=== PATIENT | male | born 1940 | race Caucasian/White ===

== ENCOUNTER 2016-07-07 19:36 | Inpatient (IN) | payer MEDICARE ==
[2016-07-07] MEDS ORDERED: VENELEX OINTMEN60 GM (20:16)
[2016-07-07] MEDS ORDERED: XANAX0.5 M1 PO (20:17)
[2016-07-07] MEDS ORDERED: ASPIRIN81 M1 PO (20:17)
[2016-07-07] MEDS ORDERED: AMIODARONE HCL100 M1 PO (20:17)
[2016-07-07] MEDS ORDERED: BUPROPION PO (20:18)
[2016-07-07] MEDS ORDERED: COREG12.5 M1 PO (20:18)
[2016-07-07] MEDS ORDERED: ELIQUIS5 M1 PO (20:19)
[2016-07-07] MEDS ORDERED: NEURONTIN300 M1 PO (20:19)
[2016-07-07] MEDS ORDERED: humolog (20:20)
[2016-07-07 20:21] LABS: BASO % 0.5 % (0-2); EOS % 1.3 % (0-7); EOSINOPHIL ABSOLUTE COUNT 0.1 tho/cmm (0.0-0.7); HCT-HEMATOCRIT 35.8 % (36.0-53.5); HGB-HEMOGLOBIN 11.6 gm/dl (13.5-17.0); LYMPH % 14.4 % (20-45); LYMPH ABSOLUTE COUNT 0.9 tho/cmm (0.8-4.5); MCHC MEAN CORPUSCULAR HGB CONC 32.4 % (32.0-36.0); MEAN PLATELET VOLUME 10.3 cmc (9.4-12.4); MONO % 10.3 % (0-12); MONOCYTE ABSOLUTE COUNT 0.6 tho/cmm (0.0-1.2); NEUTROPHIL ABSOLUTE COUNT 4.5 tho/cmm (1.6-8.0); NEUTROPHIL-AUTOMATED 4.5 tho/cmm (1.6-8.0); NEUTROPHILS % 73.5 % (40-80); PLATELET COUNT 159 tho/cmm (150-450); RED BLOOD COUNT 3.51 mil/cmm (4.40-5.70); RED CELL DISTRIBUTION WIDTH 15.5 % (12.4-16.4); WHITE BLOOD COUNT 6.1 tho/cmm (4.0-10.0)
[2016-07-07] MEDS ORDERED: VISTARIL25 M1 (20:21)
[2016-07-07] MEDS ORDERED: PRINIVIL5 M1 PO (20:22)
[2016-07-07] MEDS ORDERED: KLOR-CON 1010 ME1 PO (20:22)
[2016-07-07] MEDS ORDERED: MELATONIN5 M5 PO (20:23)
[2016-07-07] MEDS ORDERED: BISCOLAX10 MG PR (20:23)
[2016-07-07] MEDS ORDERED: ZOCOR80 M1 PO (20:24)
[2016-07-07] MEDS ORDERED: MIRALAX17 G2 PO (20:24)
[2016-07-07] MEDS ORDERED: ALDACTONE25 M1 PO (20:24)
[2016-07-07] MEDS ORDERED: SYMBICORT 160-1 PUFF INH (20:25)
[2016-07-07] MEDS ORDERED: TYLENOL EXTRA500 M1 (20:25)
[2016-07-07] MEDS ORDERED: DEMADEX20 M1 PO (20:25)
[2016-07-07 20:36] LABS: ANION GAP 10 mmol/L (0-20); BLOOD UREA NITROGEN 46 mg/dl (6-24); CALCIUM 8.6 mg/dl (8.5-10.5); CARBON DIOXIDE-VENOUS 37 mmol/L (22-32); CHLORIDE 95 mmol/l (96-110); CREATININE 1.87 mg/dl (0.60-1.30); GLUCOSE 158 mg/dL (70-110); POTASSIUM 5.3 mmol/L (3.7-5.1); SODIUM 137 mmol/L (135-145); eGFR VALUE FOR BLACK 39 mL/Min
[2016-07-07 20:50] LABS: URINE APPEARANCE CLEAR; URINE BILIRUBIN NEGATIVE (NEG); URINE BLOOD MODERATE (NEG); URINE COLOR YELLOW; URINE GLUCOSE (UA) NEGATIVE (NEG); URINE KETONE NEGATIVE (NEG); URINE LEUKOCYTE ESTERASE POSITIVE (NEG); URINE NITRITE NEGATIVE (NEG); URINE PROTEIN NEGATIVE (NEG)
[2016-07-07 20:56] LABS: PROCALCITONIN 0.25 ng/ml (0.05-0.09)
[2016-07-07 20:57] LABS: URINE AMORPHOUS 1+; URINE EPITHELIAL CELLS 0 /[HPF] (0-10)
[2016-07-08 03:02] LABS: ABG CO2 ARTERIAL 36 mmol/L (21-27); ARTERIAL BLD GAS O2 SATURATION 97 % (95-98); ARTERIAL BLOOD GAS PCO2 57 mmHg (32-45); ARTERIAL PO2 82 mmHg (70-100); BICARBONATE 34 mmol/L (21-28); BLOOD GAS BASE EXCESS 8 mM/L (-/+3); PH 7.39 Units (7.35-7.45)
[2016-07-08 05:18] LABS: BASO % 0.4 % (0-2); EOS % 0.2 % (0-7); HCT-HEMATOCRIT 30.2 % (36.0-53.5); HGB-HEMOGLOBIN 9.8 gm/dl (13.5-17.0); IMMATURE GRANULOCYTES ABSOLUTE 0.02 tho/cmm (0-0.03); IMMATURE GRANULOCYTES PERCENT 0.4 % (0-0.3); LYMPH % 9.4 % (20-45); LYMPH ABSOLUTE COUNT 0.4 tho/cmm (0.8-4.5); MCH (MEAN CORPUSCULAR HGB) 32.8 pg (28.0-32.0); MCHC MEAN CORPUSCULAR HGB CONC 32.5 % (32.0-36.0); MEAN PLATELET VOLUME 10.4 cmc (9.4-12.4); MONO % 24.9 % (0-12); MONOCYTE ABSOLUTE COUNT 1.1 tho/cmm (0.0-1.2); NEUTROPHILS % 64.7 % (40-80); PLATELET COUNT 140 tho/cmm (150-450); RED BLOOD COUNT 2.99 mil/cmm (4.40-5.70); RED CELL DISTRIBUTION WIDTH 15.7 % (12.4-16.4); WHITE BLOOD COUNT 4.6 tho/cmm (4.0-10.0)
[2016-07-08 05:28] LABS: INR 1.4 INR (0.9-1.1); PROTHROMBIN TIME 16.3 SECONDS (9.0-13.6)
[2016-07-08 05:40] LABS: ALB/GLOB RATIO 0.9 (0.8-2.0); ALBUMIN 2.5 g/dl (3.5-5.0); ALKALINE PHOSPHATASE 81 U/L (33-138); ALT/SGPT 73 U/L (12-78); ANION GAP 11 mmol/L (0-20); AST/SGOT 37 U/L (10-40); BILIRUBIN,TOTAL 0.9 mg/dl (0.0-1.5); BLOOD UREA NITROGEN 40 mg/dl (6-24); CALCIUM 7.9 mg/dl (8.5-10.5); CARBON DIOXIDE-VENOUS 35 mmol/L (22-32); CHLORIDE 99 mmol/l (96-110); CREATININE 1.64 mg/dl (0.60-1.30); GLUCOSE 132 mg/dL (70-110); POTASSIUM 4.5 mmol/L (3.7-5.1); SODIUM 140 mmol/L (135-145); eGFR VALUE FOR BLACK 46 mL/Min
[2016-07-09 04:38] LABS: BASO % 0.5 % (0-2); EOS % 1.8 % (0-7); HCT-HEMATOCRIT 25.5 % (36.0-53.5); HGB-HEMOGLOBIN 8.2 gm/dl (13.5-17.0); LYMPH ABSOLUTE COUNT 0.5 tho/cmm (0.8-4.5); MCH (MEAN CORPUSCULAR HGB) 32.7 pg (28.0-32.0); MCHC MEAN CORPUSCULAR HGB CONC 32.2 % (32.0-36.0); MCV (MEAN CELL VOLUME) 101.6 fl (82.0-96.0); MEAN PLATELET VOLUME 10.1 cmc (9.4-12.4); MONO % 25.8 % (0-12); MONOCYTE ABSOLUTE COUNT 0.6 tho/cmm (0.0-1.2); NEUTROPHIL ABSOLUTE COUNT 1.1 tho/cmm (1.6-8.0); NEUTROPHIL-AUTOMATED 1.1 tho/cmm (1.6-8.0); NEUTROPHILS % 48.9 % (40-80); PLATELET COUNT 125 tho/cmm (150-450); RED BLOOD COUNT 2.51 mil/cmm (4.40-5.70); RED CELL DISTRIBUTION WIDTH 15.6 % (12.4-16.4)
[2016-07-09 04:45] LABS: WHITE BLOOD COUNT 2.2 tho/cmm (4.0-10.0)
[2016-07-09 05:26] LABS: ANION GAP 8 mmol/L (0-20); BLOOD UREA NITROGEN 44 mg/dl (6-24); CALCIUM 7.5 mg/dl (8.5-10.5); CARBON DIOXIDE-VENOUS 31 mmol/L (22-32); CHLORIDE 102 mmol/l (96-110); CREATININE 1.38 mg/dl (0.60-1.30); GLUCOSE 107 mg/dL (70-110); SODIUM 137 mmol/L (135-145); eGFR VALUE FOR BLACK 57 mL/Min
[2016-07-09 21:09] LABS: HCT-HEMATOCRIT 21.1 % (36.0-53.5); HGB-HEMOGLOBIN 6.9 gm/dl (13.5-17.0); RED CELL DISTRIBUTION WIDTH 15.5 % (12.4-16.4)
[2016-07-10 11:39] LABS: BASO % 0.8 % (0-2); EOS % 1.4 % (0-7); EOSINOPHIL ABSOLUTE COUNT 0.1 tho/cmm (0.0-0.7); LYMPH % 22.8 % (20-45); LYMPH ABSOLUTE COUNT 0.8 tho/cmm (0.8-4.5); MCV (MEAN CELL VOLUME) 96.9 fl (82.0-96.0); MEAN PLATELET VOLUME 10.9 cmc (9.4-12.4); MONO % 26.9 % (0-12); NEUTROPHIL ABSOLUTE COUNT 1.7 tho/cmm (1.6-8.0); NEUTROPHIL-AUTOMATED 1.7 tho/cmm (1.6-8.0); NEUTROPHILS % 48.1 % (40-80); PLATELET COUNT 147 tho/cmm (150-450)
[2016-07-10 11:42] LABS: HCT-HEMATOCRIT 28.1 % (36.0-53.5); HGB-HEMOGLOBIN 9.2 gm/dl (13.5-17.0); MCH (MEAN CORPUSCULAR HGB) 31.7 pg (28.0-32.0); MCHC MEAN CORPUSCULAR HGB CONC 32.7 % (32.0-36.0); WHITE BLOOD COUNT 3.6 tho/cmm (4.0-10.0)
[2016-07-10 11:56] LABS: ANION GAP 10 mmol/L (0-20); BLOOD UREA NITROGEN 47 mg/dl (6-24); CALCIUM 7.3 mg/dl (8.5-10.5); CARBON DIOXIDE-VENOUS 32 mmol/L (22-32); CHLORIDE 101 mmol/l (96-110); CREATININE 1.23 mg/dl (0.60-1.30); POTASSIUM 4.3 mmol/L (3.7-5.1); SODIUM 139 mmol/L (135-145); eGFR VALUE FOR BLACK 65 mL/Min
[2016-07-10 12:05] LABS: GLUCOSE 199 mg/dL (70-110)
[2016-07-11 03:49] LABS: BASO % 0.3 % (0-2); EOS % 1.6 % (0-7); EOSINOPHIL ABSOLUTE COUNT 0.1 tho/cmm (0.0-0.7); IMMATURE GRANULOCYTES ABSOLUTE 0.01 tho/cmm (0-0.03); IMMATURE GRANULOCYTES PERCENT 0.3 % (0-0.3); LYMPH % 18.4 % (20-45); LYMPH ABSOLUTE COUNT 0.7 tho/cmm (0.8-4.5); MCH (MEAN CORPUSCULAR HGB) 31.7 pg (28.0-32.0); MCHC MEAN CORPUSCULAR HGB CONC 33.3 % (32.0-36.0); MCV (MEAN CELL VOLUME) 95.1 fl (82.0-96.0); MEAN PLATELET VOLUME 9.8 cmc (9.4-12.4); MONO % 21.8 % (0-12); MONOCYTE ABSOLUTE COUNT 0.8 tho/cmm (0.0-1.2); NEUTROPHIL ABSOLUTE COUNT 2.2 tho/cmm (1.6-8.0); NEUTROPHIL-AUTOMATED 2.2 tho/cmm (1.6-8.0); NEUTROPHILS % 57.6 % (40-80); PLATELET COUNT 147 tho/cmm (150-450); RED BLOOD COUNT 2.84 mil/cmm (4.40-5.70); RED CELL DISTRIBUTION WIDTH 17.9 % (12.4-16.4); WHITE BLOOD COUNT 3.9 tho/cmm (4.0-10.0)
[2016-07-11 04:04] LABS: ANION GAP 10 mmol/L (0-20); BLOOD UREA NITROGEN 31 mg/dl (6-24); CALCIUM 7.7 mg/dl (8.5-10.5); CARBON DIOXIDE-VENOUS 31 mmol/L (22-32); CHLORIDE 105 mmol/l (96-110); CREATININE 1.08 mg/dl (0.60-1.30); GLUCOSE 117 mg/dL (70-110); POTASSIUM 3.7 mmol/L (3.7-5.1); SODIUM 142 mmol/L (135-145); eGFR VALUE FOR BLACK 76 mL/Min
[2016-07-13 05:57] LABS: BASO % 0.2 % (0-2); EOS % 6.3 % (0-7); EOSINOPHIL ABSOLUTE COUNT 0.3 tho/cmm (0.0-0.7); HGB-HEMOGLOBIN 7.5 gm/dl (13.5-17.0); IMMATURE GRANULOCYTES ABSOLUTE 0.02 tho/cmm (0-0.03); IMMATURE GRANULOCYTES PERCENT 0.5 % (0-0.3); LYMPH % 22.4 % (20-45); LYMPH ABSOLUTE COUNT 0.9 tho/cmm (0.8-4.5); MCHC MEAN CORPUSCULAR HGB CONC 31.9 % (32.0-36.0); MCV (MEAN CELL VOLUME) 97.1 fl (82.0-96.0); MEAN PLATELET VOLUME 9.7 cmc (9.4-12.4); MONO % 19.3 % (0-12); MONOCYTE ABSOLUTE COUNT 0.8 tho/cmm (0.0-1.2); NEUTROPHIL ABSOLUTE COUNT 2.1 tho/cmm (1.6-8.0); NEUTROPHIL-AUTOMATED 2.1 tho/cmm (1.6-8.0); NEUTROPHILS % 51.3 % (40-80); PLATELET COUNT 189 tho/cmm (150-450); RED BLOOD COUNT 2.42 mil/cmm (4.40-5.70); RED CELL DISTRIBUTION WIDTH 17.5 % (12.4-16.4); WHITE BLOOD COUNT 4.1 tho/cmm (4.0-10.0)
[2016-07-13 05:59] LABS: HCT-HEMATOCRIT 23.5 % (36.0-53.5)
[2016-07-13 06:06] LABS: ANION GAP 9 mmol/L (0-20); BLOOD UREA NITROGEN 16 mg/dl (6-24); CALCIUM 7.8 mg/dl (8.5-10.5); CARBON DIOXIDE-VENOUS 34 mmol/L (22-32); CHLORIDE 104 mmol/l (96-110); CREATININE 0.99 mg/dl (0.60-1.30); GLUCOSE 124 mg/dL (70-110); POTASSIUM 3.7 mmol/L (3.7-5.1); SODIUM 143 mmol/L (135-145); eGFR VALUE FOR BLACK 85 mL/Min
[2016-07-14 05:54] LABS: BASO % 0.7 % (0-2); EOS % 4.3 % (0-7); EOSINOPHIL ABSOLUTE COUNT 0.2 tho/cmm (0.0-0.7); HGB-HEMOGLOBIN 7.8 gm/dl (13.5-17.0); IMMATURE GRANULOCYTES ABSOLUTE 0.08 tho/cmm (0-0.03); IMMATURE GRANULOCYTES PERCENT 1.8 % (0-0.3); LYMPH % 22.4 % (20-45); MCHC MEAN CORPUSCULAR HGB CONC 32.6 % (32.0-36.0); MEAN PLATELET VOLUME 9.7 cmc (9.4-12.4); MONOCYTE ABSOLUTE COUNT 0.8 tho/cmm (0.0-1.2); NEUTROPHIL ABSOLUTE COUNT 2.3 tho/cmm (1.6-8.0); NEUTROPHIL-AUTOMATED 2.3 tho/cmm (1.6-8.0); NEUTROPHILS % 51.8 % (40-80); PLATELET COUNT 241 tho/cmm (150-450); RED BLOOD COUNT 2.44 mil/cmm (4.40-5.70); WHITE BLOOD COUNT 4.4 tho/cmm (4.0-10.0)
[2016-07-14 05:59] LABS: HCT-HEMATOCRIT 23.9 % (36.0-53.5)
[2016-07-14 06:11] LABS: ANION GAP 9 mmol/L (0-20); BLOOD UREA NITROGEN 19 mg/dl (6-24); CALCIUM 7.9 mg/dl (8.5-10.5); CARBON DIOXIDE-VENOUS 35 mmol/L (22-32); CHLORIDE 103 mmol/l (96-110); CREATININE 1.06 mg/dl (0.60-1.30); GLUCOSE 120 mg/dL (70-110); POTASSIUM 3.7 mmol/L (3.7-5.1); SODIUM 143 mmol/L (135-145); eGFR VALUE FOR BLACK 78 mL/Min
[2016-07-15 04:17] LABS: BASO % 0.6 % (0-2); EOS % 3.8 % (0-7); EOSINOPHIL ABSOLUTE COUNT 0.2 tho/cmm (0.0-0.7); HCT-HEMATOCRIT 24.1 % (36.0-53.5); HGB-HEMOGLOBIN 7.7 gm/dl (13.5-17.0); LYMPH % 23.5 % (20-45); LYMPH ABSOLUTE COUNT 1.2 tho/cmm (0.8-4.5); MCH (MEAN CORPUSCULAR HGB) 31.6 pg (28.0-32.0); MCV (MEAN CELL VOLUME) 98.8 fl (82.0-96.0); MEAN PLATELET VOLUME 9.3 cmc (9.4-12.4); MONO % 19.5 % (0-12); NEUTROPHIL ABSOLUTE COUNT 2.5 tho/cmm (1.6-8.0); NEUTROPHIL-AUTOMATED 2.5 tho/cmm (1.6-8.0); NEUTROPHILS % 50.6 % (40-80); PLATELET COUNT 284 tho/cmm (150-450); RED BLOOD COUNT 2.44 mil/cmm (4.40-5.70); RED CELL DISTRIBUTION WIDTH 17.9 % (12.4-16.4)
[2016-07-15 04:29] LABS: ANION GAP 10 mmol/L (0-20); BLOOD UREA NITROGEN 20 mg/dl (6-24); CALCIUM 7.7 mg/dl (8.5-10.5); CARBON DIOXIDE-VENOUS 34 mmol/L (22-32); CHLORIDE 101 mmol/l (96-110); CREATININE 1.12 mg/dl (0.60-1.30); GLUCOSE 123 mg/dL (70-110); POTASSIUM 3.9 mmol/L (3.7-5.1); SODIUM 141 mmol/L (135-145); eGFR VALUE FOR BLACK 73 mL/Min
[2016-07-16 05:22] LABS: BASO % 0.2 % (0-2); EOS % 2.9 % (0-7); EOSINOPHIL ABSOLUTE COUNT 0.2 tho/cmm (0.0-0.7); HCT-HEMATOCRIT 26.5 % (36.0-53.5); HGB-HEMOGLOBIN 8.5 gm/dl (13.5-17.0); IMMATURE GRANULOCYTES ABSOLUTE 0.08 tho/cmm (0-0.03); IMMATURE GRANULOCYTES PERCENT 1.3 % (0-0.3); LYMPH % 17.8 % (20-45); LYMPH ABSOLUTE COUNT 1.1 tho/cmm (0.8-4.5); MCH (MEAN CORPUSCULAR HGB) 31.5 pg (28.0-32.0); MCHC MEAN CORPUSCULAR HGB CONC 32.1 % (32.0-36.0); MCV (MEAN CELL VOLUME) 98.1 fl (82.0-96.0); MEAN PLATELET VOLUME 9.1 cmc (9.4-12.4); MONO % 18.5 % (0-12); MONOCYTE ABSOLUTE COUNT 1.1 tho/cmm (0.0-1.2); NEUTROPHIL ABSOLUTE COUNT 3.5 tho/cmm (1.6-8.0); NEUTROPHIL-AUTOMATED 3.5 tho/cmm (1.6-8.0); NEUTROPHILS % 59.3 % (40-80); PLATELET COUNT 353 tho/cmm (150-450); RED CELL DISTRIBUTION WIDTH 18.5 % (12.4-16.4)
[2016-07-16 05:37] LABS: ANION GAP 11 mmol/L (0-20); BLOOD UREA NITROGEN 23 mg/dl (6-24); CALCIUM 8.2 mg/dl (8.5-10.5); CARBON DIOXIDE-VENOUS 32 mmol/L (22-32); CHLORIDE 100 mmol/l (96-110); CREATININE 1.25 mg/dl (0.60-1.30); GLUCOSE 149 mg/dL (70-110); POTASSIUM 4.2 mmol/L (3.7-5.1); SODIUM 139 mmol/L (135-145); eGFR VALUE FOR BLACK 64 mL/Min
[2016-07-17] MEDS ORDERED: LOTRIMIN AF12 GM TOP (11:38)
[2016-07-17] MEDS ORDERED: COREG6.25 M1 PO (11:40)
[2016-07-17] MEDS ORDERED: PROTONIX40 M2 PO (11:52)
[2016-07-17] MEDS ORDERED: LASIX40 M1 PO (11:53)
[2016-07-17 23:17] LABS: BASO % 0.2 % (0-2); EOS % 1.3 % (0-7); EOSINOPHIL ABSOLUTE COUNT 0.1 tho/cmm (0.0-0.7); HCT-HEMATOCRIT 26.1 % (36.0-53.5); HGB-HEMOGLOBIN 8.4 gm/dl (13.5-17.0); IMMATURE GRANULOCYTES ABSOLUTE 0.07 tho/cmm (0-0.03); IMMATURE GRANULOCYTES PERCENT 1.2 % (0-0.3); LYMPH ABSOLUTE COUNT 0.9 tho/cmm (0.8-4.5); MCH (MEAN CORPUSCULAR HGB) 31.6 pg (28.0-32.0); MCHC MEAN CORPUSCULAR HGB CONC 32.2 % (32.0-36.0); MCV (MEAN CELL VOLUME) 98.1 fl (82.0-96.0); MEAN PLATELET VOLUME 8.5 cmc (9.4-12.4); MONO % 17.4 % (0-12); MONOCYTE ABSOLUTE COUNT 1.1 tho/cmm (0.0-1.2); NEUTROPHILS % 65.9 % (40-80); PLATELET COUNT 320 tho/cmm (150-450); RED BLOOD COUNT 2.66 mil/cmm (4.40-5.70); RED CELL DISTRIBUTION WIDTH 18.4 % (12.4-16.4); WHITE BLOOD COUNT 6.1 tho/cmm (4.0-10.0)
[2016-07-17 23:32] LABS: ANION GAP 9 mmol/L (0-20); BLOOD UREA NITROGEN 37 mg/dl (6-24); CALCIUM 8.3 mg/dl (8.5-10.5); CARBON DIOXIDE-VENOUS 33 mmol/L (22-32); CHLORIDE 99 mmol/l (96-110); CREATININE 1.15 mg/dl (0.60-1.30); GLUCOSE 184 mg/dL (70-110); POTASSIUM 4.3 mmol/L (3.7-5.1); SODIUM 137 mmol/L (135-145); eGFR VALUE FOR BLACK 71 mL/Min
--- NOTE | 2016-07-18 14:19 | NUR ---
REC'D CALL ON OFFICE PHONE FROM PTS DAUGHTER, SYL. STATED PT NOT ABLE TO GET INTO SNF FACILITY THEY WANT, PER DR ALLEN AND THAT ON HOSPICE PT WILL HAVE TO PAY FOR ROOM AND BOARD PRIVATELY. RET'D CALL TO DTR, LEFT MSG THAT SW IS WORKING ON SNF OPTIONS. VERIFIED THAT WITH HOSPICE MEDICARE BENEFITS, ROOM AND BOARD IS NOT COVERED. INFO (VERBAL AND WRITTEN), ON MEDICARE HOSPICE BENEFITS WAS GIVEN TO PT, AND SON, KACEY LAST SUNDAY. LIST OF HOSPICE PROVIDERS WAS AGAIN GIVEN TO PT, AND SYL YESTERDAY. UPDATE TO Romaine KHAN NP.
--- NOTE | 2016-07-19 13:17 | NUR ---
ABOUT 0830, REC'D MESSAGE ON OFFICE PHONE FROM DAUGHTER, SYL REQUESTING [facility] COME TO PTS ROOM TO TALK ABOUT HOSPICE. STATED SHE WAS ON HER WAY TO THE HOSPITAL AND HER BROTHER, KACEY, WAS ALREADY IN THE ROOM. CALLED [facility] AND GAVE THE HOSPICE REFERRAL, THEY WILL HAVE A NURSE TO THE ROOM WITH IN AN HOUR- PER JU AT [facility]. CALLED DAUGHTER WITH INFORMATION. [facility]
[2016-07-21] MEDS ORDERED: IPRAT-ALBUT 0.5-3 ML INH (12:18)
== END 2016-07-21 13:10 | DRG 871 ==
LOC: EDMED 19:36 → EMR2 22:53 → PCUA 07-08 02:14
PROVIDERS: Emergency Medicine; Family Medicine; Internal Medicine Cardiovascular Disease; Internal Medicine Rheumatology; ADMIT Family Medicine
PROC: 30233N1 Transfusion of Nonautologous Red Blood Cells into Peripheral Vein, Percutaneous Approach (ICD-10-PCS; 2016-07-09)
PROC: 0DB68ZX Excision of Stomach, Via Natural or Artificial Opening Endoscopic, Diagnostic (ICD-10-PCS; principal; 2016-07-10)
PROC: 02HV33Z Insertion of Infusion Device into Superior Vena Cava, Percutaneous Approach (ICD-10-PCS; 2016-07-10)
PROC: 3E0G8GC Introduction of Other Therapeutic Substance into Upper GI, Via Natural or Artificial Opening Endoscopic (ICD-10-PCS; 2016-07-10)
PROC: 0W3P8ZZ Control Bleeding in Gastrointestinal Tract, Via Natural or Artificial Opening Endoscopic (ICD-10-PCS; 2016-07-10)
DX: A41.89 Other specified sepsis (principal); J18.9 Pneumonia, unspecified organism; I26.99 Other pulmonary embolism without acute cor pulmonale; J96.01 Acute respiratory failure with hypoxia; N17.9 Acute kidney failure, unspecified; I50.21 Acute systolic (congestive) heart failure; D61.818 Other pancytopenia; K26.4 Chronic or unspecified duodenal ulcer with hemorrhage; I13.0 Hypertensive heart and chronic kidney disease with heart failure and stage 1 through stage 4 chronic kidney disease, or unspecified chronic kidney disease; D62 Acute posthemorrhagic anemia; B34.9 Viral infection, unspecified; R41.0 Disorientation, unspecified; J44.9 Chronic obstructive pulmonary disease, unspecified; E87.5 Hyperkalemia; E78.5 Hyperlipidemia, unspecified; I73.9 Peripheral vascular disease, unspecified; R13.10 Dysphagia, unspecified; F41.9 Anxiety disorder, unspecified; Z87.891 Personal history of nicotine dependence; S30.93XA Unspecified superficial injury of penis, initial encounter; Z66 Do not resuscitate; Z51.5 Encounter for palliative care; K22.70 Barrett's esophagus without dysplasia; I48.91 Unspecified atrial fibrillation; Z79.01 Long term (current) use of anticoagulants; E11.22 Type 2 diabetes mellitus with diabetic chronic kidney disease; N18.9 Chronic kidney disease, unspecified; Z79.4 Long term (current) use of insulin; Z79.82 Long term (current) use of aspirin; I34.0 Nonrheumatic mitral (valve) insufficiency; F32.9 Major depressive disorder, single episode, unspecified; I27.2 Other secondary pulmonary hypertension; M19.90 Unspecified osteoarthritis, unspecified site; I25.5 Ischemic cardiomyopathy; F10.10 Alcohol abuse, uncomplicated
CPT/HCPCS: A9540; A9558; C1751; C9113; G8978-GP-CJ; G8979-GP-CI; J0171; J1644; J1815; J1940; J2543; J3370; J7030; P9016